=== PATIENT | female | born 1975 | race African-American/Black ===

== ENCOUNTER → 2017-11-12 | Outpatient (CLI) | payer BC ==
[~2017-11-12] MED LIST: SINCALIDE 3 MCG/VIAL INJ ONE
--- NOTE | 2017-11-12 22:20 | Diagnostic Imaging Report ---
Hepatobiliary Scan with Gallbladder Ejection Fraction Clinical information: 42 F with RUQ abdominal pain x 3 years Report: Following intravenous administration of 7 millicuries of Tc-99m mebrofenin, dynamic images of the abdomen in the anterior projection were obtained through 40 minutes. Sincalide (CCK analog) 2.25 micrograms was administered intravenously over 30 minutes with additional imaging for determination of gallbladder ejection fraction. Perfusion to the liver is normal. Extraction of tracer from the blood pool by the liver parenchyma is normal. Tracer is seen promptly within the biliary tract. The gallbladder begins to fill by 10 minutes post-injection of tracer and fills adequately. Tracer is seen in the small bowel by during the sincalide infusion. The gallbladder ejection fraction with administration of sincalide is 87% (normal greater than 40%). Impression: 1. Filling of the gallbladder excludes the diagnosis of acute cystic duct obstruction/acute cholecystitis. 2. Normal gallbladder ejection fraction of 87% does not support the clinical diagnosis of chronic cholecystitis/gallbladder dyskinesia. Signed by: Dr. Angelina Krishna M.D. on 11/12/2017 10:17 PM
== END ==
LOC: NM 14:59
PROVIDERS: ATTEND Internal Medicine Gastroenterology
DX: R10.11 Right upper quadrant pain (principal)
CPT/HCPCS: 78227; 81025; A9537; J2805

== ENCOUNTER → 2017-12-04 | Outpatient (CLI) | payer BC ==
--- NOTE | 2017-12-04 09:33 | Diagnostic Imaging Report ---
Right upper quadrant ultrasound, 12/04/2017 Clinical history: Abdominal pain Comparison: None Technique: Grayscale and color Doppler ultrasound right upper quadrant. Findings: Inferior vena cava and abdominal aorta: Imaged segments of the IVC and aorta are of normal caliber. Limited study given bowel gas. Pancreas: Imaged segments are normal. Limited study given bowel gas. Liver: Right liver span: 13.8 cm. Normal parenchymal echogenicity with a smooth liver margin. Portal vein diameter: 1 cm; normal flow direction. Gallbladder: Normal. Wall thickness 0.3 cm. Common bile duct diameter: 0.4 cm. Right kidney: Span: 10.3 cm. Normal kidney. Impression: Normal right upper quadrant ultrasound. This report was generated with voice-recognition technology. Errors in fall intern can occur. Please interpret accordingly and contact a radiologist if there are any questions regarding the report. Signed by: Dr. Sotero Bell M.D. on 12/04/2017 9:29 AM
== END ==
LOC: US 08:01
PROVIDERS: ATTEND Internal Medicine Gastroenterology
DX: R10.11 Right upper quadrant pain (principal)
CPT/HCPCS: 76705

== ENCOUNTER 2018-04-21 07:44 | Emergency (ER) | payer BC ==
[~2018-04-21] VITALS: Ht 175.3 cm; Wt 96.2 kg
[2018-04-21] MEDS ORDERED: SODIUM CHLORIDE 0.9% 1000ML 1,000 ML IV SCH ×2 (08:45)
[2018-04-21] MEDS ORDERED: DIPHENHYDRAMINE HCL INJ 50 MG/ML VIAL IV ONE (08:45)
--- NOTE | 2018-04-21 10:30 | Diagnostic Imaging Report ---
History: Severe headache Comparison studies: None Technique: Axial images were obtained from the skull base to the vertex. Coronal and sagittal reconstructions obtained from the axial data. Dose modulation, iterative reconstruction, and/or weight based adjustment of the mA/kV was utilized to reduce the radiation dose to as low as reasonably achievable. Findings: Scalp/skull: No abnormalities. No fractures, blastic or lytic lesions. Extra-axial spaces: No masses. No fluid collections. Few dystrophic calcifications at the superior paracentral region without mass effect, physiologic. Brain sulci: Appropriate for age. Ventricles: Normal in size and configuration. No hydrocephalus. Parenchyma: No abnormal densities. No masses, hemorrhage, acute or chronic cortical vascular insults. Sellar/suprasellar region: No abnormalities Craniocervical junction: Patent foramen magnum. No Chiari one malformation. IMPRESSION: No abnormalities . Signed by: DR Alberto Norman M.D. on 04/21/2018 10:27 AM
--- NOTE | 2018-04-21 11:04 | Diagnostic Imaging Report ---
PROCEDURE:X-RAY PARANASAL SINUSES, COMPLETE COMPARISON:None. INDICATIONS:LEFT SIDED PAIN, MIGRAIN FINDINGS: Mild thickening of the maxillary sinuses. No fluid levels are identified. No expansile or destructive osseous lesions are seen. No evidence of fracture. CONCLUSION: Mild thickening of the maxillary sinuses. Erich Muñoz D.O. Dictated by: Erich Muñoz D.O. on 04/21/2018 at 11:13 Electronically approved by: Erich Muñoz D.O. on 04/21/2018 at 11:13
[2018-04-21] MEDS ORDERED: FIORINAL-COD 31 EACH PO (11:18)
[2018-04-21 11:51] VITALS: BP 147/91
--- OUTSIDE RECORDS SUMMARY | 2018-04-27 12:32 | XMS REPORT ---
Author Author [facility] Address Unknown Phone Unavailable Care Team Providers Care Penology Professor Name Role Phone Kristen LEWIS Unavailable Unavailable MILLIE FERGUSON Unavailable Unavailable Problems This patient has no known problems. Allergies, Adverse Reactions, Alerts This patient has no known allergies or adverse reactions. Medications This patient has no known medications. Results Test Description Test Time Test Comments Text Results Atomic Results Result Comments SINUSES (PARANASAL)MIN 3VIEWS 2018-04-21 11:13:00 [place] [address] Patient Name: BHARGAVIOCTOBER MR #: [id number] : 1975 Age/Sex: 42/F Req #: [id number] [facility] Physician: Ordered by: JOHN LEWIS MD Report #: [id number] Location: ER Room/Bed: Procedure: [id number] DX/SINUSES (PARANASAL)MIN 3VIEWS Exam Date: 04/21/18 Exam Time: 1010 REPORT STATUS: Signed PROCEDURE: X-RAY PARANASAL SINUSES, COMPLETE COMPARISON: None. INDICATIONS: LEFT SIDED PAIN, MIGRAIN FINDINGS: Mild thickening of the maxillary sinuses. No fluid levels are identified. No expansile or destructive osseous lesions are seen. No evidence of fracture. CONCLUSION: Mild thickening of the maxillary sinuses. Rangel Muñoz D.O. Dictated by: Rangel Muñoz D.O. on 04/21/2018 at 11:13 Electronically approved by: Rangel Muñzo D.O. on 04/21/2018 at 11:13 Dictated By: RANGEL MUÑOZ DO 12 Transcribed By: KARLI on 04/21/181112 COPY TO: JOHN LEWIS MD CT BRAIN WO 2018-04-21 10:25:00 [place] [address] Patient Name: BHARGAVIOCTOBER MR #: [id number] : 1975 Age/Sex: 42/F Req #: [id number] Adm Physician: Ordered by: JOHN LEWIS MD Report #: [id number] Location: ER Room/Bed: Procedure: [id number] CT/CT BRAIN WO Exam Date: 04/21/18 Exam Time: 924 REPORT STATUS: Signed History: Severe headache Comparison studies: None Technique: Axial images were obtained from the skull base to the vertex. Coronal and sagittal reconstructions obtained from the axial data. Dose modulation, iterative reconstruction, and/or weight based adjustment of the mA/kV was utilized to reduce the radiation dose to as low as reasonably achievable. Findings: Scalp/skull: No abnormalities. No fractures, blastic or lytic lesions. Extra-axial spaces: No masses. No fluid collections. Few dystrophic calcifications at the superior paracentral region without mass effect, physiologic. Brain sulci: Appropriate for age. Ventricles: Normal in size and configuration. No hydrocephalus. Parenchyma: No abnormal densities. No masses, hemorrhage, acute or chronic cortical vascular insults. Sellar/suprasellar region: No abnormalities Craniocervical junction: Patent foramen magnum. No Chiari one malformation. IMPRESSION: No abnormalities . Signed by: DR Alberto Norman M.D. on 04/21/2018 10:27 AM Dictated By: ALBERTO DAILEY MD 102 Transcribed By: CHI on 04/21/187 COPY TO: JOHN LEWIS MD GALLBLADDER [place] [address] Patient Name: BHARGAVIOCTOBER MR #: [id number] : 1975 Age/Sex: 42/F Req #: [id number] Adm Physician: Ordered by: MILLIE FERGUSON MD Report #: [id number] Location: Room/Bed: Procedure: [id number] US/US GALLBLADDER Exam Date: 12/04/17 Exam Time: 0840 REPORT STATUS: Signed Right upper quadrant ultrasound, 12/04/2017 Clinical history: Abdominal pain Comparison: None Technique: Grayscale and color Doppler ultrasound right upper quadrant. Findings: Inferior vena cava and abdominal aorta: Imaged segments of the IVC and aorta are of normal caliber. Limited study given bowel gas. Pancreas: Imaged segments are normal. Limited study given bowel gas. Liver: Right liver span: 13.8 cm. Normal parenchymal echogenicity with a smooth liver margin. Portal vein diameter: 1 cm; normal flow direction. Gallbladder: Normal. Wall thickness 0.3 cm. Common bile duct diameter: 0.4 cm. Right kidney: Span: 10.3 cm. Normal kidney. Impression: Normal right upper quadrant ultrasound. This report was generated with voice-recognition technology. Errors in police officer crime prevention can occur. Please interpret accordingly and contact a radiologist if there are any questions regarding the report. Signed by: Dr. Lyndsay Bell M.D. on 12/04/2017 9:29 AM Dictated By: LYNDSAY BELL MD 8 Transcribed By: CHI on 12/04/17928 COPY TO: MILLIE FERGUSON MD HEPTOBILIARY W PHARM [place] [address] Patient Name: BHARGAVIOCTOBER MR #: [id number] : 1975 Age/Sex: 42/F Req #: [id number] Adm Physician: Ordered by: MILLIE FERGUSON MD Report #: [id number] Location: [place] Room/Bed: Procedure: [id number] NM/HEPTOBILIARY W PHARM Exam Date: 11/12/17 Exam Time: 1630 REPORT STATUS: Signed Hepatobiliary Scan with Gallbladder Ejection Fraction Clinical information: 42 F with RUQ abdominal pain x 3 years Report: Following intravenous administration of 7 millicuries of Tc-99m mebrofenin, dynamic images of the abdomen in the anterior projection were obtained through 40 minutes. Sincalide (CCK analog) 2.25 micrograms was administered intravenously over 30 minutes with additional imaging for determination of ga llbladder ejection fraction. Perfusion to the liver is normal. Extraction of tracer from the blood pool by the liver parenchyma is normal. Tracer is seen promptly within the biliary tract. The gallbladder begins to fill by 10 minutes post-injection of tracer and fills adequately. Tracer is seen in the small bowel by during the sincalide infusion. The gallbladder ejection fraction with administration of sincalide is 87% (normal greater than 40%). Impression: 1. Filling of the gallbladder excludes the diagnosis of acute cystic duct obstruction/acute cholecystitis. 2. Normal gallbladder ejection fraction of 87% does not support the clinical diagnosis of chronic cholecystitis/gallbladder dyskinesia. Signed by: Dr. Lizzie Krishna M.D. on 11/12/2017 10:17 PM Dictated By: LIZZIE KRISHNA MD 16 Transcribed By: CHI on 11/12/172216 COPY TO: MILLIE FERGUSON MD
== END 2018-04-21 11:52 | disposition home or self-care (01) ==
LOC: ER 07:44
DX: G43.001 Migraine without aura, not intractable, with status migrainosus (principal); G43.B0 Ophthalmoplegic migraine, not intractable
CPT/HCPCS: 70220; 70450; 99283; J1200; J7030

== ENCOUNTER 2018-04-27 12:45 | Emergency (ER) | payer BC ==
[~2018-04-27 12:45] MED LIST changes: +FIORINAL-COD 31 EACH PO; -SINCALIDE 3 MCG/VIAL INJ ONE
== END 2018-04-27 13:10 | disposition left against medical advice (07) ==
LOC: ER 12:45
DX: S00.83XA Contusion of other part of head, initial encounter (principal); W22.09XA Striking against other stationary object, initial encounter; Y99.0 Civilian activity done for income or pay

== ENCOUNTER 2018-04-27 14:45 | Emergency (ER) | payer SELFPAY ==
[~2018-04-27] VITALS: Ht 175.3 cm; Wt 96.2 kg
== END 2018-04-27 15:50 | disposition home or self-care (01) ==
LOC: FSED 14:45
DX: S00.83XA Contusion of other part of head, initial encounter (principal); R51 Headache; R11.0 Nausea; R42 Dizziness and giddiness; W22.09XA Striking against other stationary object, initial encounter; Y99.0 Civilian activity done for income or pay; I10 Essential (primary) hypertension
CPT/HCPCS: 99283

== ENCOUNTER → 2018-05-07 | Outpatient (CLI) | payer BC ==
--- NOTE | 2018-05-26 08:44 | Diagnostic Imaging Report ---
#[id number] - MGSCRBIL #BILATERAL DIGITAL SCREENING MAMMOGRAM WITH CAD: 05/07/2018 CLINICAL: Routine screening. Comparison is made to exam [facility] Current study contains 4 films. The tissue of both breasts is heterogeneously dense. This may lower the sensitivity of mammography. Current study was also evaluated with a Computer Aided Detection (CAD) system. There is an amorphous calcification in the right breast at 11 o'clock anterior depth. No other significant masses, calcifications, or other findings are seen in either breast. IMPRESSION: INCOMPLETE: NEEDS ADDITIONAL IMAGING EVALUATION The amorphous calcification in the right breast is indeterminate. Magnification views are recommended. The patient will be contacted by the Mammography Department to schedule this appointment. Erich Muñoz Jr., D.O. cw/:05/25/2018 12:23:51 Compressed Gases Tester: Angelina FIGUEROA(Makayla)(Mary Carmen), [facility] letter sent: Additional Imaging Needed Mammogram BI-RADS: 0 Indeterminate
== END ==
LOC: MAMMO 13:24
PROVIDERS: ATTEND Specialist
DX: Z12.31 Encounter for screening mammogram for malignant neoplasm of breast (principal)
CPT/HCPCS: 77067

== ENCOUNTER → 2018-05-28 | Outpatient (CLI) | payer SELFPAY ==
--- NOTE | 2018-05-31 08:35 | Diagnostic Imaging Report ---
#[id number] - MGDXRT #UNILATERAL RIGHT DIGITAL DIAGNOSTIC MAMMOGRAM WITH SPOT COMPRESSION AND MAGNIFICATION: 05/28/2018 Comparison is made to exams dated: 05/07/2018 mammogram - [facility] and 04/19/2008 mammogram - [facility]/[place]. Current study contains 3 films. The tissue of the right breast is heterogeneously dense. This may lower the sensitivity of mammography. There are 2-3 foci of calcification in the upper outer aspect of the right breast. These are new compared to a study 10 years past. Overall, they appear to have a benign appearance but will need followup in 6 months to ascertain stability. No significant masses or other findings are seen in the breast. IMPRESSION: PROBABLY BENIGN A follow-up mammogram in 6 months is recommended to demonstrate stability. The patient was informed of these findings and the need for followup. Erich Muñoz Jr., D.O. cw/:05/28/2018 13:55:13 Bus Or Truck Garage Mechanic: Angelina FIGUEROA(Makayla)(Mary Carmen), [facility] letter sent: Followup Recommended Mammogram BI-RADS: 3 Probably benign
== END ==
LOC: MAMMO 09:51
PROVIDERS: ATTEND Specialist
DX: N63.10 Unspecified lump in the right breast, unspecified quadrant (principal)

== ENCOUNTER → 2019-01-11 | Outpatient (CLI) | payer BC ==
--- NOTE | 2019-01-12 09:26 | Diagnostic Imaging Report ---
#[id number] - MGDXRT #UNILATERAL RIGHT DIGITAL DIAGNOSTIC MAMMOGRAM WITH CAD WITH SPOT COMPRESSION SHORT-TERM FOLLOW-UP: 01/11/2019 Comparison is made to exams dated: 05/28/2018 mammogram, 05/07/2018 mammogram - [facility] and 04/19/2008 mammogram - [facility]/[place]. Current study contains 6 films. The tissue of the right breast is heterogeneously dense. This may lower the sensitivity of mammography. Current study was also evaluated with a Computer Aided Detection (CAD) system. The previously described areas of calcification appear unchanged and are most likely benign. IMPRESSION: PROBABLY BENIGN A follow-up mammogram in 6 months is recommended to demonstrate stability. The patient has been or will be notified of the results. Erich Muñoz Jr., D.O. cw/:01/11/2019 16:32:59 Employment Interviewer: Angelina FIGUEROA(Makayla)(Mary Carmen), [facility] letter sent: Followup Recommended Mammogram BI-RADS: 3 Probably benign
== END ==
LOC: MAMMO 14:59
PROVIDERS: ATTEND Specialist
DX: Z09 Encounter for follow-up examination after completed treatment for conditions other than malignant neoplasm (principal); N63.10 Unspecified lump in the right breast, unspecified quadrant